=== PATIENT | female | born 1985 | race Two or more races ===

== ENCOUNTER 2019-08-10 21:04 | Emergency (ER) | payer SELFPAY ==
[~2019-08-10] VITALS: Ht 165.1 cm; Wt 68.0 kg
[2019-08-10] MEDS ORDERED: SODIUM CHLORIDE 0.9% 1,000 ML IV ONE (22:45)
[2019-08-11 00:13] LABS: BASOPHILS % 0.6 % (0.0-2.0); EOSINOPHILS % 0.4 % (0.0-5.0); HEMOGLOBIN. 14.1 g/dL (12.0-16.0); LYMPHOCYTES % 36.9 % (20.0-50.0); MEAN CORPUSCULAR HEMOGLOBIN 31.7 pg (28.0-32.0); MEAN CORPUSCULAR VOLUME 92.1 fL (81.0-99.0); MEAN PLATELET VOLUME 7.1 fl (7.4-10.4); MONOCYTES % 9.2 % (2.0-8.0); NEUTROPHILS % 52.9 % (40.0-76.0); PLATELET 317 x1000/uL (130-400); RED BLOOD CELL COUNT 4.45 mill/uL (4.2-5.4); RED CELL DISTRIBUTION WIDTH 14.1 % (11.6-14.6)
[2019-08-11 00:14] LABS: CHLORIDE 102 mEq/L (98-107)
[2019-08-11 00:18] LABS: ETHANOL BLOOD < 10 mg/dL
[2019-08-11 10:39] LABS: CLARITY URINE TURBID (CLEAR); COLOR URINE YELLOW (YELLOW); KETONES URINE 3+ (NEGATIVE); LEUKOCYTE ESTERASE URINE TRACE (NEGATIVE); NITRITE URINE POSITIVE (NEGATIVE); OCCULT BLOOD URINE NEGATIVE (NEGATIVE); PROTEIN URINE TRACE (NEGATIVE); SPECIFIC GRAVITY URINE 1.025 (1.005-1.030); UROBILINOGEN URINE 0.2 E.U./dL (0.2-1.0)
[2019-08-11 10:57] LABS: METHADONE URINE SCREEN NEGATIVE (NEGATIVE)
[2019-08-11 10:58] LABS: *AMPHETAMINES SCREEN URINE NEGATIVE (NEGATIVE); *BARBITURATES SCREEN URINE NEGATIVE (NEGATIVE); *BENZODIAZEPINES SCREEN URINE NEGATIVE (NEGATIVE); *COCAINE SCREEN URINE NEGATIVE (NEGATIVE); OPIATES URINE SCREEN NEGATIVE (NEGATIVE); PHENCYCLIDINE URINE SCREEN NEGATIVE (NEGATIVE)
[2019-08-11 11:06] LABS: CANNABINOID URINE SCREEN PRESUMTIVE POSITIVE (NEGATIVE)
[2019-08-12] MEDS ORDERED: NITROFURANTOIN 100MG M/M CAPSULE PO ONE (11:15)
[2019-08-12 12:10] VITALS: BP 110/65
[2019-08-12] MEDS ORDERED: GABAPENTIN 300MG CAPSULE PO SCH (14:00)
== END 2019-08-12 12:12 | disposition home or self-care (01) ==
LOC: ER 21:04
DX: F32.9 Major depressive disorder, single episode, unspecified (principal); N39.0 Urinary tract infection, site not specified; F43.11 Post-traumatic stress disorder, acute; F43.12 Post-traumatic stress disorder, chronic; X58.XXXA Exposure to other specified factors, initial encounter; Y93.89 Activity, other specified; Y92.89 Other specified places as the place of occurrence of the external cause; Z87.828 Personal history of other (healed) physical injury and trauma
CPT/HCPCS: 36415; 80053; 80307; 80320; 80329; 81025; 85025; 93005; 99284; J7030; G0480

== ENCOUNTER 2022-04-15 14:56 | Emergency (ER) | payer OTHER, MEDICAID ==
[~2022-04-15] VITALS: Ht 165.1 cm; Wt 77.0 kg
[2022-04-15] MEDS ORDERED: KETOROLAC 60MG/2ML VIAL IM STA (16:42)
[2022-04-15] MEDS ORDERED: METOCLOPRAMIDE HCL 10MG/2ML VIAL IM ONE (16:45)
[2022-04-15 17:13] LABS: BASOPHILS % 0.7 % (0.0-2.0); EOSINOPHILS % 3.1 % (0.0-5.0); HEMATOCRIT. 40.4 % (36.0-48.0); HEMOGLOBIN. 13.9 g/dL (12.0-16.0); LYMPHOCYTES % 23.3 % (20.0-50.0); MEAN CORPUSCULAR HEMOGLOBIN 32.2 pg (28.0-32.0); MEAN CORPUSCULAR VOLUME 93.5 fL (81.0-99.0); MEAN PLATELET VOLUME 7.8 fl (7.4-10.4); MONOCYTES % 7.9 % (2.0-8.0); PLATELET 365 x1000/uL (130-400); RED BLOOD CELL COUNT 4.32 mill/uL (4.2-5.4); RED CELL DISTRIBUTION WIDTH 14.7 % (11.6-14.6)
[2022-04-15 17:19] LABS: CHLORIDE 106 mEq/L (98-107)
[2022-04-15] MEDS ORDERED: ACETAMINOPHEN 325MG TABLET PO STA (18:39)
[2022-04-15] MEDS ORDERED: AMOXICILLIN 500 MG CAPSULE PO ONE (18:45)
[2022-04-15 19:47] LABS: CLARITY URINE CLOUDY (CLEAR); COLOR URINE DARK YELLOW (YELLOW); KETONES URINE TRACE (NEGATIVE); LEUKOCYTE ESTERASE URINE 1+ (NEGATIVE); NITRITE URINE NEGATIVE (NEGATIVE); OCCULT BLOOD URINE 3+ (NEGATIVE); PH URINE 5.5 (4.5-8.0); PROTEIN URINE 1+ (NEGATIVE); SPECIFIC GRAVITY URINE 1.024 (1.005-1.030)
[2022-04-15 20:00] LABS: *AMPHETAMINES SCREEN URINE NEGATIVE (NEGATIVE); *BARBITURATES SCREEN URINE NEGATIVE (NEGATIVE); *BENZODIAZEPINES SCREEN URINE NEGATIVE (NEGATIVE); *COCAINE SCREEN URINE NEGATIVE (NEGATIVE); CANNABINOID URINE SCREEN NEGATIVE (NEGATIVE); METHADONE URINE SCREEN NEGATIVE (NEGATIVE); OPIATES URINE SCREEN NEGATIVE (NEGATIVE); PHENCYCLIDINE URINE SCREEN NEGATIVE (NEGATIVE)
[2022-04-16] MEDS ORDERED: ACETAMINOPHEN 325MG TABLET PO SCH (09:00)
[2022-04-16] MEDS ORDERED: ARIPIPRAZOLE 5MG TABLET PO SCH (09:00)
[2022-04-16] MEDS: GABAPENTIN 300MG CAPSULE PO SCH ×2 (09:43→14:56)
[2022-04-16] MEDS ORDERED: IBUPROFEN 400MG TABLET PO ONE (10:30)
[2022-04-16] MEDS ORDERED: AMOX-494 MT (17:42)
[2022-04-16 18:27] VITALS: BP 105/67
[2022-04-16] MEDS ORDERED: ACETAMINOPHEN 160MG/5ML UDC PO ONE (18:45)
[2022-04-16] MEDS ORDERED: MIRTAZAPINE 15MG TABLET PO SCH (21:00)
== END 2022-04-16 18:31 ==
LOC: ER 15:07
DX: F33.9 Major depressive disorder, recurrent, unspecified (principal); R45.851 Suicidal ideations; N30.90 Cystitis, unspecified without hematuria; S00.83XA Contusion of other part of head, initial encounter; W07.XXXA Fall from chair, initial encounter; Y93.89 Activity, other specified; Y92.89 Other specified places as the place of occurrence of the external cause; K02.9 Dental caries, unspecified; E11.9 Type 2 diabetes mellitus without complications; Z63.79 Other stressful life events affecting family and household; Z91.51 Personal history of suicidal behavior; Z20.822 Contact with and (suspected) exposure to COVID-19
CPT/HCPCS: 36415; 70450; 80048; 80305; 80320; 81003; 82962; 85025; 96372; 99285; C9803; J1885; J2765; U0003; U0005; G0480

== ENCOUNTER 2024-03-06 15:58 | Emergency (ER) | payer MEDICAID, OTHER ==
[~2024-03-06] VITALS: Ht 162.6 cm; Wt 77.0 kg
[~2024-03-06 15:58] MED LIST: AMOX-494 MT
[2024-03-06 15:59] VITALS: O2SAT 98
[2024-03-06] MEDS ORDERED: LEVETIRACETAM 500MG TABLET PO ONE (16:15)
[2024-03-06 16:48] LABS: BASOPHILS % 0.6 % (0.0-2.0); EOSINOPHILS % 0.4 % (0.0-5.0); HEMATOCRIT. 40.8 % (36.0-48.0); HEMOGLOBIN. 14.3 g/dL (12.0-16.0); LYMPHOCYTES % 23.4 % (20.0-50.0); MEAN CORPUSCULAR HEMOGLOBIN 34.4 pg (28.0-32.0); MEAN CORPUSCULAR HGB CONC 35.1 g/dL (31.0-37.0); MEAN CORPUSCULAR VOLUME 97.9 fL (81.0-99.0); MEAN PLATELET VOLUME 7.3 fl (7.4-10.4); MONOCYTES % 7.7 % (2.0-8.0); NEUTROPHILS % 67.9 % (40.0-76.0); PLATELET 433 x1000/uL (130-400); RED BLOOD CELL COUNT 4.17 mill/uL (4.2-5.4); RED CELL DISTRIBUTION WIDTH 13.9 % (11.6-14.6); WHITE BLOOD COUNT 8.5 x1000/uL (4.5-11.0)
[2024-03-06] MEDS: LEVETIRACETAM 250MG TABLET PO NR (16:50)
[2024-03-06] MEDS: IBUPROFEN 600MG TABLET PO ONE (16:50)
[2024-03-06 16:54] LABS: CHLORIDE 103 mEq/L (98-107); POTASSIUM 3.9 mEq/L (3.5-5.1); SODIUM 136 mEq/L (136-145)
[2024-03-06 16:55] LABS: CARBON DIOXIDE 24 mEq/L (21-32)
[2024-03-06 16:56] LABS: CALCIUM 9.3 mg/dL (8.7-10.4)
[2024-03-06 17:00] LABS: CREATININE 0.7 mg/dL (0.6-1.0); GLUCOSE 134 mg/dL (70-105)
[2024-03-06 17:01] LABS: UREA NITROGEN BLOOD 8 mg/dL (9-23)
[2024-03-06 17:02] LABS: ACETAMINOPHEN < 2 ug/mL (10-30)
[2024-03-06 17:06] LABS: *AMPHETAMINES SCREEN URINE PRESUMPTIVE POSITIVE (NEGATIVE); *BARBITURATES SCREEN URINE NEGATIVE (NEGATIVE); *BENZODIAZEPINES SCREEN URINE NEGATIVE (NEGATIVE); *COCAINE SCREEN URINE NEGATIVE (NEGATIVE); CANNABINOID URINE SCREEN NEGATIVE (NEGATIVE); ECSTASY MDMA SCREEN URINE NEGATIVE (NEGATIVE); METHADONE URINE SCREEN NEGATIVE (NEGATIVE); OPIATES URINE SCREEN NEGATIVE (NEGATIVE); PHENCYCLIDINE URINE SCREEN NEGATIVE (NEGATIVE)
[2024-03-06 17:13] LABS: ETHANOL BLOOD < 10 mg/dL (<10)
[2024-03-06 17:16] LABS: HCG SCREEN NEGATIVE
[2024-03-06 18:02] VITALS: BP 136/93; TEMP 98.6
[2024-03-06] MEDS: LORAZEPAM 1MG TABLET PO ONE (18:03)
[2024-03-06] MEDS: LEVETIRACETAM 250MG TABLET PO SCH (21:00)
[2024-03-07 06:42] VITALS: PULSE 81; RESP 20
[2024-03-07] MEDS: LORAZEPAM 1MG TABLET PO NR (16:22)
== END 2024-03-07 18:06 | disposition short-term general hospital (02) ==
LOC: ER 15:58
DX: R45.851 Suicidal ideations (principal); E11.9 Type 2 diabetes mellitus without complications; Z20.822 Contact with and (suspected) exposure to COVID-19
CPT/HCPCS: 36415; 80048; 80305; 80307; 80320; 80329; 84703; 85025; 86850; 86900; 87426; 99285; G0480